=== PATIENT | male | born 1995 | race Native Hawaiian/Other Pacific Islander ===

== ENCOUNTER 2022-12-10 13:42 | Emergency (ER) | payer MEDICAID ==
[~2022-12-10] VITALS: Ht 162.6 cm; Wt 90.7 kg
[2022-12-10 13:51] VITALS: BP_SYST 148
[2022-12-10] MEDS ORDERED: cefTRIAXone 1 GM in LIDOCAINE 1%, 20 ML MDV 2.1 ML IM ONE (14:00)
[2022-12-10] MEDS ORDERED: BACITRACIN 1 GM OINT TP ONE (14:25)
[2022-12-10] MEDS ORDERED: IBUPROFEN 800 MG TABLET PO ONE (14:30)
[2022-12-10] MEDS ORDERED: LIDOCAINE 1% 10 MG/ML, 20 ML MDV INJ ONE (14:30)
[2022-12-10] MEDS ORDERED: AMOXICILLIN/POTASSIUM CLAV 875 MG TABLET PO ONE (15:15)
[2022-12-10] MEDS ORDERED: AUG875 PO (15:26)
[2022-12-10 15:30] VITALS: BP_SYST 148
== END 2022-12-10 15:32 | disposition home or self-care (01) ==
LOC: SED 13:42
DX: S01.21XA Laceration without foreign body of nose, initial encounter (principal); S01.25XA Open bite of nose, initial encounter; Z79.899 Other long term (current) drug therapy; W54.0XXA Bitten by dog, initial encounter; Y93.89 Activity, other specified; Y92.89 Other specified places as the place of occurrence of the external cause; Y99.8 Other external cause status
CPT/HCPCS: 99283; 12011; 96372; J0696; J2001